=== PATIENT | male | born 1960 | race Caucasian/White ===

== ENCOUNTER → 2024-01-28 11:14 | Outpatient (REF) | payer OTHER, SELFPAY | LOC: RAD 11:14 | PROVIDERS: ATTENDING PHYSICIAN Student in an Organized Health Care Education/Training Program | DX: T14.8XXA Other injury of unspecified body region, initial encounter (principal); R26.89 Other abnormalities of gait and mobility; M54.9 Dorsalgia, unspecified | CPT/HCPCS: 72072 ==

== ENCOUNTER 2025-02-14 06:18 | Day surgery (SDC) | payer OTHER, SELFPAY ==
[2025-02-08 11:40] LABS: Hematocrit 45.0 % (39.0-52.0); Hemoglobin 14.8 g/dL (13.0-18.0); Mean Corp Hgb Conc. 32.9 g/dL (33.0-37.0); Mean Corpuscular Volume 91.5 fL (80.0-94.0); Nucleated Red Blood Cells % 0 % (-); Platelet Count 305 10^3/uL (130-400); Red Cell Dist. Width 13.2 % (11.5-14.5)
[2025-02-08 12:31] LABS: Blood Urea Nitrogen 18 mg/dl (9-20); Calcium 9.2 mg/dl (8.4-10.2); Carbon Dioxide 27 mmol/L (22-30); Chloride 105 mmol/L (98-107); Glucose 98 mg/dl (70-99); Potassium 5.5 mmol/L (3.5-5.1); Sodium 141 mmol/L (135-145); eGFR > 60.00
[2025-02-08 13:40] VITALS: BMI 37.2
--- NOTE | 2025-02-08 15:40 | PTCARENOTE ---
Abnormal K+5.5 collected 02/08/[address] Alie [address] Dr Wyatt's office.
--- NOTE | 2025-02-09 16:03 | PTCARENOTE ---
Abn K+ 5.5, Dr. Fernandez notified, no additional interventions requested.
[2025-02-14] VITALS (8 sets, daily range): BP systolic 134–154; BP diastolic 93–107; BMI 37.2
[2025-02-14] MEDS: TYLENOL 1000 MG PO (10:28)
[2025-02-14] MEDS: CELEBREX 200 MG PO (10:29)
[2025-02-14] MEDS: NORMOSOL-R/PLASMALYTE-A 1000 IV (10:38)
== END 2025-02-14 15:15 | disposition home or self-care (01) ==
LOC: SDS 06:18
PROVIDERS: ATTENDING PHYSICIAN Specialist; FAMILY PHYSICIAN Family Medicine
DX: S83.242A Other tear of medial meniscus, current injury, left knee, initial encounter (principal); X58.XXXA Exposure to other specified factors, initial encounter
CPT/HCPCS: 29881; 36415; 80048; 85025; 93005

== ENCOUNTER 2025-04-13 15:06 | Outpatient (RCR) | payer OTHER, SELFPAY | END 2025-04-13 23:59 | disposition home or self-care (01) | LOC: RPT 15:06 | PROVIDERS: ATTENDING PHYSICIAN Specialist; FAMILY PHYSICIAN Family Medicine | DX: Z47.89 Encounter for other orthopedic aftercare (principal); Z73.6 Limitation of activities due to disability; M62.81 Muscle weakness (generalized); R26.2 Difficulty in walking, not elsewhere classified; M25.562 Pain in left knee; R26.89 Other abnormalities of gait and mobility | CPT/HCPCS: 97110; 97162; 97530 ==

== ENCOUNTER 2025-04-20 13:20 | Outpatient (RCR) | payer OTHER, SELFPAY | END 2025-04-20 23:59 | disposition home or self-care (01) | LOC: RPT 13:20 | PROVIDERS: ATTENDING PHYSICIAN Specialist; FAMILY PHYSICIAN Family Medicine | DX: Z47.89 Encounter for other orthopedic aftercare (principal); Z73.6 Limitation of activities due to disability; M62.81 Muscle weakness (generalized); R26.2 Difficulty in walking, not elsewhere classified; M25.562 Pain in left knee; R26.89 Other abnormalities of gait and mobility | CPT/HCPCS: 97110; 97112; 97530 ==